=== PATIENT | female | born 1980 | race Hispanic/Latino ===

== ENCOUNTER 2019-03-21 11:28 | Inpatient (IN) | payer SELFPAY ==
[~2019-03-21] VITALS: Ht 154.9 cm; Wt 86.2 kg
[2019-03-21] MEDS ORDERED: SODIUM CHLORIDE 0.9% 1000ML 1,000 ML IV ONE (11:56)
[2019-03-21] MEDS ORDERED: KETOROLAC TROMETHAMINE 30MG/ML ONE (11:56)
[2019-03-21] MEDS ORDERED: ONDANSETRON HCL 4 MG/2 ML VIAL ONE (11:56)
[2019-03-21 12:01] LABS: APPEARANCE,URINE Turbid (CLEAR); BASOPHILS % (AUTO) 0.4 % (0.0-5.0); BILIRUBIN,URINE Small (NEGATIVE); COLOR,URINE Dark Yellow (YELLOW); EOSINOPHILS % (AUTO) 0.5 % (0.0-8.0); GLUCOSE, URINE (UA) Negative (NEGATIVE); HEMATOCRIT 39.2 % (36-48); KETONES,URINE 15 mg/dL (NEGATIVE); LEUKOCYTE ESTERASE ,URINE Large (NEGATIVE); LYMPHOCYTES % (AUTO) 10.8 % (21.0-51.0); MEAN CORPUSCULAR HEMOGLOBIN 30.9 pg (27.0-33.0); MEAN CORPUSCULAR HGB CONC 33.3 g/dL (32.0-36.0); NEUTROPHILS % (AUTO) 84.3 % (40.0-77.0); NITRATE,URINE Negative (NEGATIVE); OCCULT BLOOD,URINE Negative (NEGATIVE); PLATELET COUNT (AUTO) 355 K/uL (130-400); PROTEIN,URINE POS 1+ mg/dL (NEGATIVE); RED BLOOD CELL COUNT(AUTO) 4.22 MIL/uL (4.00-5.50); RED CELL DISTRIBUTION WIDTH 13.5 % (11.0-15.5); WHITE BLOOD COUNT (AUTO) 16.1 K/uL (4.8-10.8)
[2019-03-21 12:04] LABS: HCG,QUAL RESULT NEGATIVE (NEGATIVE)
[2019-03-21 12:10] LABS: CREATININE 0.6 mg/dL (0.5-1.5); POTASSIUM 3.7 mmol/L (3.5-5.1)
[2019-03-21 12:13] LABS: BACTERIA,URINE Many /HPF (None Seen); RBC,URINE 0-1 /HPF (0-1)
[2019-03-21 12:14] LABS: ALBUMIN 3.4 g/dL (3.5-5.0); BILIRUBIN,TOTAL 0.7 mg/dL (0.2-1.0); TOTAL PROTEIN, SERUM 7.6 g/dL (6.0-8.3)
[2019-03-21] MEDS ORDERED: IOHEXOL 350 MG/ML 100ML INFUS..BTL IV ONE (13:29)
[2019-03-21] MEDS ORDERED: METRONIDAZOLE 500MG/100ML BAG 100 ML ONE (14:24)
[2019-03-21] MEDS ORDERED: MORPHINE SULFATE 4 MG/1ML SYG ONE (14:25)
[2019-03-21] MEDS ORDERED: ACETAMINOPHEN 650 MG SUPPOSITORY RC PRN (15:00)
[2019-03-21] MEDS ORDERED: HYDRALAZINE HCL 20 MG/ML VIAL IV PRN (15:00)
[2019-03-21] MEDS ORDERED: MORPHINE SULFATE 2 MG/ML 1ML SYG IV PRN (15:00)
[2019-03-21] MEDS ORDERED: LEVOFLOXACIN 500 MG/D5W 100 ML 100 ML ONE (15:20)
[2019-03-21 17:32] VITALS: BP 125/69
[2019-03-21] MEDS: SODIUM CHLORIDE 0.9% 1000ML 1,000 ML IV SCH ×2 (17:44→23:00)
[2019-03-21] MEDS ORDERED: LEVO75TA10 PO (17:51)
[2019-03-21] MEDS: MORPHINE SULFATE 4 MG/1ML SYG IV PRN (18:07)
[2019-03-21] MEDS: ONDANSETRON HCL 4 MG/2 ML VIAL IV PRN (19:24)
[2019-03-21 19:29] VITALS: BP 135/76
[2019-03-21] MEDS: ZOSYN 3.375GM+NS 50ML 50 ML IV SCH (21:24)
[2019-03-21] MEDS: FAMOTIDINE/PF 20 MG/2 ML VIAL IV SCH (21:25)
[2019-03-21 23:52] VITALS: BP 97/55
[2019-03-22] MEDS: MORPHINE SULFATE 4 MG/1ML SYG IV PRN ×4 (03:07→20:37)
[2019-03-22 04:00] VITALS: BP 117/74
[2019-03-22] MEDS: ZOSYN 3.375GM+NS 50ML 50 ML IV SCH ×3 (04:53→20:27)
[2019-03-22] MEDS: SODIUM CHLORIDE 0.9% 1000ML 1,000 ML IV SCH (04:54)
[2019-03-22 05:37] LABS: BASOPHILS % (AUTO) 0.3 % (0.0-5.0); LYMPHOCYTES % (AUTO) 10.7 % (21.0-51.0); MEAN CORPUSCULAR HEMOGLOBIN 32.1 pg (27.0-33.0); MEAN CORPUSCULAR HGB CONC 34.3 g/dL (32.0-36.0); MEAN CORPUSCULAR VOLUME 93.7 fL (79-99); MONOCYTES % (AUTO) 3.6 % (3.0-13.0); NEUTROPHILS % (AUTO) 83.4 % (40.0-77.0); PLATELET COUNT (AUTO) 327 K/uL (130-400); RED BLOOD CELL COUNT(AUTO) 3.63 MIL/uL (4.00-5.50); RED CELL DISTRIBUTION WIDTH 13.6 % (11.0-15.5); WHITE BLOOD COUNT (AUTO) 10.4 K/uL (4.8-10.8)
[2019-03-22 05:56] LABS: CREATININE 0.6 mg/dL (0.5-1.5); POTASSIUM 3.3 mmol/L (3.5-5.1)
[2019-03-22 06:09] LABS: CRP QUANTITATIVE 321.7 mg/L (0.00-9.0)
[2019-03-22 07:44] VITALS: BP 115/59
[2019-03-22] MEDS: FAMOTIDINE/PF 20 MG/2 ML VIAL IV SCH ×2 (09:43→20:27)
[2019-03-22] MEDS: DEXTROSE 5 % AND 0.9 % NACL 1,000 ML IV SCH ×2 (09:44→19:38)
[2019-03-22] MEDS: ENOXAPARIN SODIUM 40 MG/0.4 ML SYRINGE SQ SCH (09:44)
[2019-03-22 11:20] VITALS: BP 124/63
[2019-03-22] MEDS: POTASSIUM CHLORIDE 20MEQ/100ML 100 ML IV PRN (11:26)
[2019-03-22] MEDS: LIDOCAINE HCL-MPF 1% 2ML VIAL IVP PRN (11:26)
[2019-03-22] MEDS ORDERED: KETOROLAC TROMETHAMINE 30MG/ML IV PRN (11:30)
[2019-03-22] MEDS: FLUCONAZOLE 200 MG/NS 100 ML 100 ML IV SCH (13:12)
[2019-03-22] MEDS: METRONIDAZOLE 500MG/100ML BAG 100 ML IV SCH ×2 (13:12→23:25)
--- NOTE | 2019-03-22 15:33 | NUR ---
cm note met with patient and states resides at home with spouse and 5 children, pt independent and active at home. states no dc needs. provided with low income clinics in the area and rx assist resources. . [facility] she will follwjeri. [facility]. Addendum: 03/22/19 at 1535 by SHREE GARCIA CM Amended: Links added.
[2019-03-22 17:07] VITALS: BP 106/61
[2019-03-22] MEDS: KETOROLAC TROMETHAMINE 15MG/ML IV PRN (17:39)
[2019-03-22 19:00] VITALS: BP 112/66
[2019-03-22 23:16] VITALS: BP 100/57
[2019-03-23] MEDS: POTASSIUM CHLORIDE 20MEQ/100ML 100 ML IV PRN (01:25)
[2019-03-23] MEDS: LIDOCAINE HCL-MPF 1% 2ML VIAL IVP PRN (01:26)
[2019-03-23 03:26] VITALS: BP 120/73
[2019-03-23] MEDS: MORPHINE SULFATE 4 MG/1ML SYG IV PRN (04:16)
[2019-03-23] MEDS: ZOSYN 3.375GM+NS 50ML 50 ML IV SCH ×3 (04:16→20:19)
[2019-03-23] MEDS: METRONIDAZOLE 500MG/100ML BAG 100 ML IV SCH ×3 (04:17→22:22)
[2019-03-23 04:47] LABS: HEMATOCRIT 32.5 % (36-48); MEAN CORPUSCULAR HEMOGLOBIN 31.5 pg (27.0-33.0); MEAN CORPUSCULAR HGB CONC 33.4 g/dL (32.0-36.0); MEAN CORPUSCULAR VOLUME 94.4 fL (79-99); PLATELET COUNT (AUTO) 314 K/uL (130-400); RED BLOOD CELL COUNT(AUTO) 3.44 MIL/uL (4.00-5.50); RED CELL DISTRIBUTION WIDTH 13.7 % (11.0-15.5); WHITE BLOOD COUNT (AUTO) 9.6 K/uL (4.8-10.8)
[2019-03-23 05:02] LABS: CREATININE 0.6 mg/dL (0.5-1.5); POTASSIUM 3.5 mmol/L (3.5-5.1)
[2019-03-23] MEDS: LEVOTHYROXINE 75 MCG TABLET PO SCH (07:30)
[2019-03-23] MEDS: ONDANSETRON HCL 4 MG/2 ML VIAL IV PRN (07:49)
[2019-03-23 08:25] VITALS: BP 110/70
[2019-03-23] MEDS: FAMOTIDINE/PF 20 MG/2 ML VIAL IV SCH ×2 (09:50→20:19)
[2019-03-23] MEDS: DEXTROSE 5 % AND 0.9 % NACL 1,000 ML IV SCH ×4 (09:50→22:22)
[2019-03-23] MEDS: KETOROLAC TROMETHAMINE 15MG/ML IV PRN ×3 (09:50→22:25)
[2019-03-23] MEDS: ENOXAPARIN SODIUM 40 MG/0.4 ML SYRINGE SQ SCH (09:51)
[2019-03-23 11:55] VITALS: BP 108/68
[2019-03-23] MEDS: FLUCONAZOLE 200 MG/NS 100 ML 100 ML IV SCH (13:06)
[2019-03-23 16:40] VITALS: BP 121/78
[2019-03-23 19:30] VITALS: BP 123/76
[2019-03-23 23:04] VITALS: BP 120/70
[2019-03-24 03:38] VITALS: BP 105/71
[2019-03-24] MEDS: ZOSYN 3.375GM+NS 50ML 50 ML IV SCH ×3 (04:39→21:36)
[2019-03-24] MEDS: KETOROLAC TROMETHAMINE 15MG/ML IV PRN (04:40)
[2019-03-24 05:07] LABS: HEMATOCRIT 30.6 % (36-48); MEAN CORPUSCULAR HEMOGLOBIN 31.9 pg (27.0-33.0); MEAN CORPUSCULAR HGB CONC 34.4 g/dL (32.0-36.0); MEAN CORPUSCULAR VOLUME 92.7 fL (79-99); PLATELET COUNT (AUTO) 345 K/uL (130-400); RED BLOOD CELL COUNT(AUTO) 3.31 MIL/uL (4.00-5.50); RED CELL DISTRIBUTION WIDTH 13.4 % (11.0-15.5); WHITE BLOOD COUNT (AUTO) 8.5 K/uL (4.8-10.8)
[2019-03-24 05:28] LABS: CREATININE 0.5 mg/dL (0.5-1.5); POTASSIUM 3.1 mmol/L (3.5-5.1)
[2019-03-24] MEDS: LEVOTHYROXINE 75 MCG TABLET PO SCH (06:09)
[2019-03-24] MEDS: METRONIDAZOLE 500MG/100ML BAG 100 ML IV SCH ×3 (06:09→21:36)
[2019-03-24 07:00] VITALS: BP 131/77
--- NOTE | 2019-03-24 08:45 | NUR ---
RADIOLOGY DR. VELASQUEZ WAS NOTIFIED OF DR. JAVIER'S REQUEST TO HAVE ABSCESS MEASURED ON THIS PATIENT ON CT SCAN DONE ON 03/21/2019. HE SAID THAT HE WOULD MEASURE AND PLACE RESULTS IN COMPUTER.
[2019-03-24] MEDS: FAMOTIDINE/PF 20 MG/2 ML VIAL IV SCH ×2 (09:05→19:44)
[2019-03-24] MEDS: ENOXAPARIN SODIUM 40 MG/0.4 ML SYRINGE SQ SCH (09:05)
--- NOTE | 2019-03-24 11:25 | NUR ---
SURGERY CHERYL GARNER PA-C FOR DR. JAVIER IN TO SEE PATIENT. NO SURGICAL INTERVENTION IS REQUIRED AT THIS TIME. PATIENT NEEDS TO F/U WITH DR. JAVIER IN 6 WEEKS FOR A COLONOSCOPY.
[2019-03-24 11:27] VITALS: BP 136/87
[2019-03-24] MEDS: FLUCONAZOLE 200 MG/NS 100 ML 100 ML IV SCH (11:54)
[2019-03-24] MEDS ORDERED: POTASSIUM CHLORIDE 20 MEQ ERTAB PO SCH ×2 (16:05→20:00)
[2019-03-24 16:25] VITALS: BP 131/84
[2019-03-24 19:30] VITALS: BP 123/80
[2019-03-24] MEDS ORDERED: POTASSIUM CHLORIDE 20 MEQ ERTAB PO ONE (23:09)
[2019-03-24 23:54] VITALS: BP 136/84
--- NOTE | 2019-03-25 | NUR ---
ROUNDS PATIENT RESTING IN BED AT THIS TIME WITH OU CLOSED. EASILY AROUSED. NO COMPLAINTS OF PAIN VOICED AT THIS TIME. VITALS STABLE. AFEBRILE. TOLERATING IVF WELL. NO NAUSEA OR VOMITING NOTED. HOB ELEVATED. CALL LIGHT WITHIN REACH. WILL CONTINUE TO BE OBSERVED. Addendum: 03/25/19 at 0717 by ROBBIN OLIVEIRA RN RN Amended: Links added.
[2019-03-25 03:35] VITALS: BP 122/68
[2019-03-25 04:44] LABS: HEMATOCRIT 31.1 % (36-48); MEAN CORPUSCULAR HEMOGLOBIN 31.6 pg (27.0-33.0); MEAN CORPUSCULAR HGB CONC 33.9 g/dL (32.0-36.0); MEAN CORPUSCULAR VOLUME 93.2 fL (79-99); PLATELET COUNT (AUTO) 332 K/uL (130-400); RED BLOOD CELL COUNT(AUTO) 3.34 MIL/uL (4.00-5.50); RED CELL DISTRIBUTION WIDTH 13.5 % (11.0-15.5); WHITE BLOOD COUNT (AUTO) 9.9 K/uL (4.8-10.8)
[2019-03-25 04:50] LABS: CREATININE 0.6 mg/dL (0.5-1.5); POTASSIUM 3.4 mmol/L (3.5-5.1)
[2019-03-25] MEDS: ZOSYN 3.375GM+NS 50ML 50 ML IV SCH (05:43)
[2019-03-25] MEDS: METRONIDAZOLE 500MG/100ML BAG 100 ML IV SCH (05:43)
[2019-03-25] MEDS: LEVOTHYROXINE 75 MCG TABLET PO SCH (05:52)
[2019-03-25 07:58] VITALS: BP 136/82
[2019-03-25] MEDS: FAMOTIDINE/PF 20 MG/2 ML VIAL IV SCH (08:01)
[2019-03-25] MEDS: ENOXAPARIN SODIUM 40 MG/0.4 ML SYRINGE SQ SCH (08:02)
[2019-03-25] MEDS: POTASSIUM CHLORIDE 20MEQ/100ML 100 ML IV PRN (08:03)
[2019-03-25] MEDS: LIDOCAINE HCL-MPF 1% 2ML VIAL IVP PRN (08:59)
[2019-03-25 11:33] VITALS: BP 121/85
--- NOTE | 2019-03-25 11:46 | NUR ---
INSTRUCTIONS DISCHARGE INSTRUCTIONS GIVEN TO PATIENT USING TEACH BACK. IV REMOVED WITH TIP INTACT. DIRECT PRESSURE APPLIED UNTIL BLEEDING CONTROLLED THEN SITE COVERED WITH GAUZE AND SECURED WITH TAPE. NEW PRESCRIPTION PLACED IN PACKET ALONG WITH ALL PRINTED INFORMATION AND MD INSTRUCTIONS. NO QUESTIONS OR CONCERNS VOICED.
== END 2019-03-25 13:15 | disposition home or self-care (01) | DRG 872 ==
LOC: EDH 11:28 → EDHIP 11:29 → 4AH 17:11
PROVIDERS: ADMIT Internal Medicine; ATTEND Internal Medicine
DX: A41.9 Sepsis, unspecified organism (principal); N17.9 Acute kidney failure, unspecified; N39.0 Urinary tract infection, site not specified; K57.20 Diverticulitis of large intestine with perforation and abscess without bleeding; E86.1 Hypovolemia; K52.9 Noninfective gastroenteritis and colitis, unspecified; E66.01 Morbid (severe) obesity due to excess calories; Z68.35 Body mass index [BMI] 35.0-35.9, adult; Z90.49 Acquired absence of other specified parts of digestive tract
CPT/HCPCS: 36415; 74177; 80048; 80053; 81001; 81025; 83690; 84132; 85025; 85027; 86140; 87040; G0378; J1450; J1650; J1885; J1956; J2270; J2405; J2543; J3480; J3490; J7030; J7042; Q9967